=== PATIENT | female | born 1985 | race Caucasian/White ===

== ENCOUNTER 2017-10-29 18:19 | Emergency (ER) | payer OTHER ==
[2017-10-29] MEDS ORDERED: Ibuprofen TAB* 400 MG PO ONE (19:34)
[2017-10-29] MEDS ORDERED: Cyclobenzaprine TAB* 10 MG PO ONE (19:34)
--- NOTE | 2017-10-29 19:51 | RAD ---
INDICATION: Left shoulder pain COMPARISON: None TECHNIQUE: Routine frontal, Y and axial views were obtained. FINDINGS: The bony structures, joint spaces, and soft tissues are normal for age. IMPRESSION: NEGATIVE EXAMINATION.
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
[2017-10-29 20:58] VITALS: BP 107/65
== END 2017-10-29 20:57 | disposition home or self-care (01) ==
LOC: ED 18:19
DX: S40.012A Contusion of left shoulder, initial encounter (principal); V43.52XA Car driver injured in collision with other type car in traffic accident, initial encounter; Y93.9 Activity, unspecified; Y92.9 Unspecified place or not applicable; Y99.9 Unspecified external cause status; F17.200 Nicotine dependence, unspecified, uncomplicated
CPT/HCPCS: 99282; A9270-GY

== ENCOUNTER 2017-11-02 11:41 | Emergency (ER) | payer OTHER ==
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
[2017-11-02] MEDS ORDERED: Ketorolac INJ* 30 MG/ML 1 ML VIAL IM ONE (13:55)
[2017-11-02 14:08] VITALS: BP 108/74
== END 2017-11-02 14:21 | disposition home or self-care (01) ==
LOC: UCEAST 11:41
DX: M62.830 Muscle spasm of back (principal); M54.2 Cervicalgia; V89.2XXA Person injured in unspecified motor-vehicle accident, traffic, initial encounter; Y92.410 Unspecified street and highway as the place of occurrence of the external cause; Z72.0 Tobacco use
CPT/HCPCS: 72020; 72125; 72128; 96372; 99212; G0463; J1885